=== PATIENT | male | born 1985 | race American Indian/Alaskan Native ===

== ENCOUNTER 2018-08-06 03:30 | Emergency (ER) | payer SELFPAY ==
[2018-08-06 04:20] LABS: Bilirubin,Urine NEG (Negative); Blood,Urine NEG (Negative); Color,Urine Straw (Yellow); Protein,Urine <15 mg/dL mg/dL (Negative); Urobilinogen,Urine < 2.0 mg/dL (<2.0); WBC,Urine < 1.0 /HPF (0.0-6.0)
[2018-08-06 04:21] LABS: Basophils % (Auto) 0.9 % (0.0-1.8); Eosinophils # (Auto) 0.1 K/mm3 (0.0-0.4); Eosinophils % (Auto) 1.6 % (0.0-4.3); Hematocrit 47.4 % (35.5-45.6); Hemoglobin 15.8 gm/dl (11.8-15.2); Lymphocytes # (Auto) 2.1 K/mm3 (1.2-5.4); Lymphocytes % (Auto) 37.4 % (13.4-35.0); Mean Corpuscular HGB Conc 33 % (32-34); Mean Corpuscular Hemoglobin 31 pg (28-32); Mean Corpuscular Volume 93 fl (84-94); Monocytes # (Auto) 0.7 K/mm3 (0.0-0.8); Monocytes % (Auto) 11.4 % (0.0-7.3); Platelet Count 216 K/mm3 (140-440); Red Blood Count 5.09 M/mm3 (3.65-5.03); Red Cell Distribution Width 13.1 % (13.2-15.2)
[2018-08-06 04:26] LABS: Amphetamine Screen,Urine PRESUMPTIVE NEGATIVE; Benzodiazepines Screen,Urine PRESUMPTIVE NEGATIVE; Cannabinoid Screen,Urine PRESUMPTIVE NEGATIVE; Cocaine Screen,Urine PRESUMPTIVE NEGATIVE; Methadone Screen,Urine PRESUMPTIVE NEGATIVE; Opiate Screen,Urine PRESUMPTIVE NEGATIVE
--- NOTE | 2018-08-06 04:33 | Emergency Department Report ---
ED Psych HPI - General Chief Complaint: Psych Stated Complaint: ELY EVREYNALDO Time Seen by Provider: 08/06/18 04:18 Source: patient Mode of arrival: Ambulatory - History of Present Illness Initial Comments: Mr. Medrano is a 33-year-old male who presents with suicidal ideation. He also h as a history of polysubstance abuse including marijuana, cocaine and methamphetamines. 2-3 weeks ago he was on a involuntary mental health hold. He was evaluated at [facility]. Given new diagnosis of diagnosis of paranoid schizophrenia and bipolar disorder. He was recently discharged from rehabilitation Center in [facility]. He was given Seroquel and participated in group therapy. After 4 day stay at the psychiatric facility, he did not feel better. He felt a strong urge for self-harm today. He spoke extensively with his ex- that "took me off the ledge". He has been homeless for the last 2-3 weeks. Currently unemployed. He is very sad about his marriage. He is very frustrated with life. Father has a history of manic depression and schizophrenia. Mr. Medrano report history of unintentional overdose. He has served in the for 2 years. MD Complaint: suicidal ideation, feels depressed -: Gradual, week(s) (several weeks) Associated Psychiatric Symptoms: depression, suicidal ideation History of same: Yes Quality: constant Improves With: none Worsens With: none Context: recent drug abuse, new medication(s), significant life stressor Associated Symptoms: denies other symptoms Treatments Prior to Arrival: other (past recently been on [facility] hold) If Self Harm: admits thoughts of - Related Data Allergies Allergy/AdvReac Type Severity Reaction Status Date / Time No Known Allergies Allergy Unverified 08/06/18 03:41 ED Review of Systems ROS: Stated complaint: ELY EVAL Other details as noted in HPI Comment: All other systems reviewed and negative Constitutional: denies: fever, malaise Respiratory: denies: cough Cardiovascular: denies: chest pain ED Past Medical Hx - Past Medical History Previous Medical History?: No - Surgical History Past Surgical History?: Yes Additional Surgical History: Right arm - Social History Smoking Status: Current Every Day Smoker Substance Use Type: Alcohol, Cocaine, Marijuana, Non Opiate Pain, Prescribed, Methamphetamines ED Physical Exam - General Limitations: No Limitations General appearance: alert, in no apparent distress, other (honest insightful) - Head Head exam: Present: atraumatic, normocephalic - Eye Eye exam: Present: normal appearance - ENT ENT exam: Present: mucous membranes moist - Neck Neck exam: Present: normal inspection. Absent: tenderness, meningismus - Respiratory Respiratory exam: Present: normal lung sounds bilaterally. Absent: respiratory distress, wheezes, rales, rhonchi - Cardiovascular Cardiovascular Exam: Present: regular rate, normal rhythm, normal heart sounds. Absent: systolic murmur, diastolic murmur, rubs, gallop - GI/Abdominal GI/Abdominal exam: Present: soft, normal bowel sounds. Absent: distended, tenderness, guarding, rebound - Rectal Rectal exam: Present: deferred - Extremities Exam Extremities exam: Present: normal inspection - Back Exam Back exam: Present: normal inspection - Neurological Exam Neurological exam: Present: alert, oriented X3 - Psychiatric Psychiatric exam: Present: normal affect, normal mood - Skin Skin exam: Present: warm, dry, intact, normal color. Absent: rash ED Course Vital Signs 08/06/18 03:36 Temperature 98.2 F Pulse Rate 62 Respiratory 18 Rate Blood Pressure 139/87 O2 Sat by Pulse 99 Oximetry ED Medical Decision Making - Lab Data Result diagrams: 08/06/18 03:52 08/06/18 03:52 Laboratory Results - last 24 hr 08/06/18 08/06/18 08/06/18 03:52 03:52 03:52 WBC RBC Hgb Hct MCV MCH MCHC RDW Plt Count Lymph % (Auto) Aiken % (Auto) Eos % (Auto) Baso % (Auto) Lymph # Aiken # Eos # Baso # Seg Neutrophils % Seg Neutrophils # Sodium 139 Potassium 3.9 Chloride 103.3 Carbon Dioxide 24 Anion Gap 16 BUN 9 Creatinine 0.7 L Estimated GFR > 60 BUN/Creatinine Ratio 13 Glucose 79 Calcium 9.3 Urine Color Urine Turbidity Urine pH Ur Specific [place] Urine Protein Urine Glucose (UA) Urine Ketones Urine Blood Urine Nitrite Urine Bilirubin Urine Urobilinogen Ur Leukocyte Esterase Urine WBC (Auto) Urine RBC (Auto) Salicylates < 0.3 L Urine Opiates Screen Urine Methadone Screen Acetaminophen < 5.0 L Ur Barbiturates Screen Ur Phencyclidine Scrn Ur Amphetamines Screen U Benzodiazepines Scrn Urine Cocaine Screen U Marijuana (THC) Screen Drugs of Abuse Note Plasma/Serum Alcohol 12/08/06/18 08/06/18 03:52 03:52 Unknown WBC 5.7 RBC 5.09 H Hgb 15.8 H Hct 47.4 H MCV 93 MCH 31 MCHC 33 RDW 13.1 L Plt Count 216 Lymph % (Auto) 37.4 H Aiken % (Auto) 11.4 H Eos % (Auto) 1.6 Baso % (Auto) 0.9 Lymph # 2.1 Aiken # 0.7 Eos # 0.1 Baso # 0.0 Seg Neutrophils % 48.7 Seg Neutrophils # 2.8 Sodium Potassium Chloride Carbon Dioxide Anion Gap BUN Creatinine Estimated GFR BUN/Creatinine Ratio Glucose Calcium Urine Color Straw Urine Turbidity Clear Urine pH 6.0 Ur Specific [place] 1.006 Urine Protein <15 mg/dl Urine Glucose (UA) Neg Urine Ketones Neg Urine Blood Neg Urine Nitrite Neg Urine Bilirubin Neg Urine Urobilinogen < 2.0 Ur Leukocyte Esterase Neg Urine WBC (Auto) < 1.0 Urine RBC (Auto) 1.0 Salicylates Urine Opiates Screen Urine Methadone Screen Acetaminophen Ur Barbiturates Screen Ur Phencyclidine Scrn Ur Amphetamines Screen U Benzodiazepines Scrn Urine Cocaine Screen U Marijuana (THC) Screen Drugs of Abuse Note Plasma/Serum Alcohol < 0.01 08/06/18 Unknown WBC RBC Hgb Hct MCV MCH MCHC RDW Plt Count Lymph % (Auto) Aiken % (Auto) Eos % (Auto) Baso % (Auto) Lymph # Aiken # Eos # Baso # Seg Neutrophils % Seg Neutrophils # Sodium Potassium Chloride Carbon Dioxide Anion Gap BUN Creatinine Estimated GFR BUN/Creatinine Ratio Glucose Calcium Urine Color Urine Turbidity Urine pH Ur Specific [place] Urine Protein Urine Glucose (UA) Urine Ketones Urine Blood Urine Nitrite Urine Bilirubin Urine Urobilinogen Ur Leukocyte Esterase Urine WBC (Auto) Urine RBC (Auto) Salicylates Urine Opiates Screen Presumptive negative Urine Methadone Screen Presumptive negative Acetaminophen Ur Barbiturates Screen Presumptive negative Ur Phencyclidine Scrn Presumptive negative Ur Amphetamines Screen Presumptive negative U Benzodiazepines Scrn Presumptive negative Urine Cocaine Screen Presumptive negative U Marijuana (THC) Screen Presumptive negative Drugs of Abuse Note Disclamer Plasma/Serum Alcohol - EKG Data EKG shows normal: sinus rhythm, axis, intervals, QRS complexes, ST-T waves Rate: normal - Medical Decision Making Mr. Schultz presents with suicidal ideation, polysubstance abuse and poor social situation. Due to multiple risk factors for self-harm, patient is placed on 1013 involuntary hold when necessary precautions. He is medically clear for psychiatric care. Awaiting treatment recommendations by psychiatric team. I reviewed labs. Labs are within normal limits. UDS is negative. Critical care attestation.: If time is entered above; I have spent that time in minutes in the direct care of this critically ill patient, excluding procedure time. ED Disposition Clinical Impression: Suicidal ideation, Polysubstance abuse Disposition: [id number] PSY HOSP/PSY UNIT Is pt being admited?: No Does the pt Need Aspirin: No Condition: Stable
[2018-08-06 04:43] LABS: BUN/Creatinine Ratio 13; Blood Urea Nitrogen 9 mg/dL (9-20); Calcium 9.3 mg/dL (8.4-10.2); Hemolysis Index 26
[2018-08-06] MEDS ORDERED: NACL 0.9% 1000 ML 0 ML ONE (14:08)
[2018-08-06] MEDS ORDERED: DILAUDID ONE (14:08)
[2018-08-06] MEDS ORDERED: ZOFRAN ONE (14:09)
[2018-08-06] MEDS ORDERED: LACTATED RINGERS 1,000 ML ONE (14:10)
[2018-08-07] MEDS ORDERED: ATIVAN ONE (10:27)
--- NOTE | 2018-08-07 14:29 | Consultation ---
History of Present Illness - Reason for Consult Consult date: 08/07/18 Reason for consult: Initial Psychiatric Evaluation - Chief Complaint Chief complaint: " my family thinks that I suffer with early onset signs of mental illness" - History of Present Psychiatric Illness Mr. Medrano is a 33-year-old male who presents with suicidal ideation. He also has a history of polysubstance abuse including marijuana, cocaine and methamp hetamines. 2-3 weeks ago he was on a involuntary mental health hold. Today the patient is cooperative but anxious during the assessment. He states, " I no longer use drugs. I've used meth, marijuana, and cocaine." He last used approximately 1 week ago. Patient was recently discharged from a mental institution, name unknown in [facility]. Patient denies past psychiatric diagnosis. He verbalizes " I believe that people who I have harmed are out to get me with a vengeance. " He reports that he only have psychosis when using drugs. Thoughts are tangential and circumstantial. He denies SI/HI's and A/VH's. He later states, " my mom and ex- suggested I get on a mood stabilizer. 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 Current Psychiatric Medications: Seroquel 300mg po QHS- " I refused to take it. I only took it 1 time. It made me feel dopey." Past Psychiatric History: Denies previous psychiatric diagnosis; 1 previous inpatient psychiatric hospitalization; no outpatient psychiatrist; no previous suicide attempts. Past Medication Trials: Patient denies. Trauma/Abuse History: Patient denies sexual, physical, and mental abuse. Drug/Alcohol Abuse: Methamphetamine - $10-20 dollars, frequency-varies, "smoke it"- method, last use- approximately 1 week ago, first use- 03/2018 "summertime"; Cocaine- $10-20 dollars, frequency- varies, "smoke it"-method, last use- approximately 1 week go, first use 03/2018 " summertime"; Marijuana- $10-20 dollars, frequency- varies, "smoke it"-method, last use- approximately 1 week go, first use 03/2018 Social History: Pending Bachelor's in Criminal Justice- " I graduate this spring" - [employer]; no source of income; 2 children ( ages 7 and 5); single; homeless Family History of Psychiatric Illness/Substance Abuse: Father- Schizophrenia Medications and Allergies Allergies Allergy/AdvReac Type Severity Reaction Status Date / Time No Known Allergies Allergy Unverified 08/06/18 03:41 Mental Status Exam - Vital signs Last Vital Signs Temp 98.4 F 08/07/18 08:00 Pulse 70 08/07/18 08:00 Resp 16 08/07/18 08:00 BP 101/72 08/07/18 08:00 Pulse Ox 99 08/07/18 08:00 - Exam Narrative exam: Mental Status Exam General Appearance: Causally Dressed-hospital gown Eye Contact: Intermittent Orientation: Alert and oriented x 3 ( person, time, and situation) Attitude/Behavior: Cooperative Sensorium: Distracted Psychomotor & Musculoskeletal Activity: Sitting up in chair Mood: Anxious Affect: Labile Speech/Language: Rapid Thought Processes: Circumstantial, tangential Thought Content: Paranoid/grandiose delusions noted- see HPI Perception: Patient denies A/V/T hallucinations Concentration/Attention: Impaired Suicidal Ideations/Plan: Patient denies. Homicidal Ideations/Plan: Patient denies. Insight: Variable Judgment: Variable . Results Result Diagrams: 08/06/18 03:52 08/06/18 03:52 All other labs normal. Assessment and Plan Assessment and plan: Impression: PPHx unknown. Mood Disorder unspecified. Today the patient is cooperative but anxious during the assessment. Tangential/circumstantial/flight of ideas noted. Paranoid/grandiose delusions are noted. Patient denies SI/HI's and A/VH's. UDS is negative. DDx: R/O Schizoaffective DO Recommendation/Plan: 1. Continue 1013. Will reassess in 24 hours. 2. Attempt to gain collateral to determine proper disposition. Per patient's consent ex- and mother can be contacted [phone], [phone]. 3. Start Zyprexa 5mg po mood/psychosis. 4. Will monitor mood, psychosis, sleep, appetite, compliance, and side effects. Disposition: Patient has been referred to inpatient psychiatric services. Will staff with Dr. Hollis Cisneros
[2018-08-07] MEDS ORDERED: BENADRYL PO ONE (20:12)
[2018-08-07] MEDS: BENADRYL PO PRN (22:28)
[2018-08-08 10:21] VITALS: BP 106/61
[2018-08-08] MEDS: BENADRYL PO PRN (10:38)
--- NOTE | 2018-08-08 11:55 | Progress Note ---
Subjective - Reason for Consult Consult date: 08/08/18 Reason for consult: Psychiatry Follow-up - Chief Complaint Chief complaint: "I need to stop using drugs" 33-year-old AA male who presents with suicidal ideation. Today the patient is calm and cooperative during the assessment. He stated that he wants to stop using drugs. He stated that he was never suicidal yesterday, but wanted help for his drug addiction. He stated that he does take Zyprexa for a mood do. He stated that he have not been complaint with his medication in the past. He stated, "I'm going to do my part and stay clean." He stated that he would like a referral to a outpatient rehab/psy facility when discharged. He denies SI/HI's and AVH's. He denies any side effects of his medications. Mental Status Exam - Vital signs Last Vital Signs Temp 98.2 F 08/08/18 10:20 Pulse 73 08/08/18 10:20 Resp 20 08/08/18 10:20 BP 106/61 08/08/18 10:20 Pulse Ox 99 08/08/18 10:20 - Exam Narrative exam: MSE: Appearance: calm, cooperative Behavior: regular eye contact Speech: regular rate and tone Mood: "okay" Affect: congruent to mood Thought Process: logical Thought Content: denies SI/HI's and AVH's Motor Activity: lying in bed Cognition: A/O x3 Insight: appropriate Judgment: appropriate Assessment and Plan Impression: Unspecified Mood DO. Hx of Substance Use DO. Today the patient is calm and cooperative during the assessment. The patient is no threat to self. DDx: R/O Bipolar DO Recommendation/Plan: Rescind 1013. Continue Zyprexa 5 mg PO HS for mood. Discussed possible metabolic side effects of Zyprexa with the patient. Dispo: The patient can follow up with [facility] for outpatient psy/rehab services. Staffed with Dr Salcedo.
== END 2018-08-08 13:30 | disposition home or self-care (01) ==
LOC: ED 03:30 → EEVIPCON 03:30 → ED 08-08 13:30
DX: F32.9 Major depressive disorder, single episode, unspecified (principal); F17.200 Nicotine dependence, unspecified, uncomplicated; F12.10 Cannabis abuse, uncomplicated; F15.10 Other stimulant abuse, uncomplicated; F14.10 Cocaine abuse, uncomplicated
CPT/HCPCS: 36415; 80048; 80307; 81001; 85025; 93005; 93010; 99284; G0480; J2060; J7120; 80320; J1170; J2405; J7030